=== PATIENT | male | born 1955 | race Caucasian/White ===

== ENCOUNTER 2017-09-01 07:53 | Emergency (ER) | payer OTHER ==
[~2017-09-01] VITALS: Ht 170.2 cm; Wt 97.7 kg
[~2017-09-01 07:53] MED LIST: HYDR-4061 PO; LISI-662 PO
[2017-09-01 07:58] VITALS: BP 178/78
[2017-09-01] MEDS ORDERED: IBUPROFEN 800 MG TABLET PO ONE (08:45)
[2017-09-01] MEDS ORDERED: PERTUSS(ACELL),DIPH,TET VAC/PF 0.5 ML VIAL IM ONE (08:45)
== END 2017-09-01 11:02 | disposition home or self-care (01) ==
LOC: EMS 07:56
DX: S62.630A Displaced fracture of distal phalanx of right index finger, initial encounter for closed fracture (principal); I10 Essential (primary) hypertension; F17.210 Nicotine dependence, cigarettes, uncomplicated; W20.8XXA Other cause of strike by thrown, projected or falling object, initial encounter; Y93.89 Activity, other specified; Y92.89 Other specified places as the place of occurrence of the external cause; Y99.8 Other external cause status
CPT/HCPCS: 90715; 99284